=== PATIENT | male | born 1990 | race Hispanic/Latino ===

== ENCOUNTER 2018-02-25 19:22 | Emergency (ER) | payer MEDICAID | END 2018-02-25 20:23 | disposition home or self-care (01) | LOC: EDH 19:22 | DX: S83.8X2A Sprain of other specified parts of left knee, initial encounter (principal); Z72.0 Tobacco use; X50.9XXA Other and unspecified overexertion or strenuous movements or postures, initial encounter; Y93.89 Activity, other specified; Y92.89 Other specified places as the place of occurrence of the external cause; Y99.8 Other external cause status | CPT/HCPCS: 99282 ==

== ENCOUNTER → 2018-09-16 | Outpatient (CLI) | payer MEDICAID | END | disposition home or self-care (01) | LOC: RAH 09:17 | PROVIDERS: ATTEND Family Medicine | DX: S83.282A Other tear of lateral meniscus, current injury, left knee, initial encounter (principal); S83.242A Other tear of medial meniscus, current injury, left knee, initial encounter; S86.911A Strain of unspecified muscle(s) and tendon(s) at lower leg level, right leg, initial encounter; X58.XXXA Exposure to other specified factors, initial encounter; Y93.89 Activity, other specified; Y92.89 Other specified places as the place of occurrence of the external cause; Y99.8 Other external cause status | CPT/HCPCS: 73721 ==

== ENCOUNTER 2018-12-05 23:35 | Emergency (ER) | payer MEDICAID ==
[2018-12-05] MEDS ORDERED: LIDOCAINE HCL 2% VISCOUS 15 ML UDCUP ONE (23:52)
== END 2018-12-06 00:06 | disposition home or self-care (01) ==
LOC: EDH 23:35
DX: K05.10 Chronic gingivitis, plaque induced (principal)

== ENCOUNTER 2019-02-06 07:51 | Emergency (ER) | payer MEDICAID | END 2019-02-06 08:20 | disposition home or self-care (01) | LOC: EDH 07:51 | DX: J32.9 Chronic sinusitis, unspecified (principal); J02.9 Acute pharyngitis, unspecified ==